=== PATIENT | male | born 1990 | race Two or more races ===

== ENCOUNTER 2024-06-06 13:07 | Emergency (ER) | payer MEDICAID ==
[~2024-06-06] VITALS: Ht 172.7 cm; Wt 91.4 kg
[2024-06-06 14:42] VITALS: BP 136/94; PULSE 73; RESP 16; TEMP 98.1; O2SAT 98
--- NOTE | 2024-06-06 14:43 | DVH ---
CLINICAL INDICATION: small finger pain TECHNIQUE: 3 radiographic views of the left hand were obtained. Comparison: None FINDINGS/IMPRESSION: There is acute mildly displaced fracture through the base of the 5th digit proximal phalanx The visualized joint space is well maintained. The alignment is anatomical. There is no radiopaque foreign body.
--- NOTE | 2024-06-06 15:17 | ED.PDOC ---
Musculoskeletal HPI Comments This is a pleasant 34-year-old gentleman with no pertinent MHx that presents with a chief complaint unilateral right hand pain located to the 5th PIP. Injury occurred June 03 Possible cause: Unknown Patient is endorsing pain to palpation in his legs exacerbated with flexion extension of the hand. Able to get temporary relief with [id number] Tylenol ibuprofen Denies any numbness tingling to the affected extremity Chief Complaint: Upper Extremity Time Seen by MD: 14:14 Reviewed Notes: Nurses Notes, Medications, Allergies Allergies: Coded Allergies: NO KNOWN ALLERGIES (Unverified , 06/06/24) Information Source: Patient Mode of Arrival: Ambulatory Family History Family History: Reviewed,noncontributory to illness Social History Smoker: Non-Smoker Alcohol: Denies ETOH Use Drugs: Denies Drug Use All Other Systems: Reviewed and Negative (Per HPI) Physical Exam General Appearance: No Apparent Distress, Normal HEENT: Normal ENT Inspection, Pharynx Normal, TMs Normal Neck: Full Range of Motion, Non-Tender, Normal, Normal Inspection Respiratory: Chest Non-Tender, Lungs Clear, No Accessory Muscle Use, No Respiratory Distress, Normal Breath Sounds Cardiovascular: No Edema, No JVD, No Murmur, No Gallop, Normal Peripheral Pulses, Regular Rate/Rhythm Breast Exam: Deferred Gastrointestinal: No Organomegaly, Non Tender, No Pulsatile Mass, Normal Bowel Sounds, Soft Genitalia: Deferred Pelvic: Deferred Rectal: Deferred Extremities: No calf tenderness, Normal capillary refill, Normal inspection, Normal range of motion, Non-tender, No pedal edema Musculoskeletal : Apperance: Normal Neurologic: Alert, No Motor Deficits, Normal Affect, Normal Mood, No Sensory Deficits Cerebellar Function: Normal Reflexes: Normal Skin: Dry, Normal Color, Warm Lymphatic: No Adenopathy Was a procedure done? Was a procedure done?: No Differential Diagnosis EXT Differential Diagnosis: Fracture, Sprain, Dislocation X-Ray, Labs, Meds, VS Vital Signs Date Time Temp Pulse Resp B/P (MAP) Pulse Ox O2 Delivery O2 Flow Rate FiO2 06/06/24 14:42 98.1 73 16 136/94 (108) 98 98.1 06/06/24 14:42 73 06/06/24 13:33 97.8 79 17 133/102 (112) 97 PATIENT: MARIS MONAHAN ACCT: [id number] UNIT: [id number] : 1990 LOC: ER ROOM / BED: / AGE / SEX: 34 / M ADM STATUS: REG ER SERVICE [id number] ORDERING PHYSICIAN: RACHEL ABEL NP PROCEDURE(s): LHAN - L HAND 3V XRAY REASON: small finger pain ORDER NUMBER(s): [id number], ACCESSION NUMBER(s): [id number] CLINICAL INDICATION: small finger pain TECHNIQUE: 3 radiographic views of the left hand were obtained. Comparison: None FINDINGS/IMPRESSION: There is acute mildly displaced fracture through the base of the 5th digit proximal phalanx The visualized joint space is well maintained. The alignment is anatomical. There is no radiopaque foreign body. ATED BY: TAN FORMAN DO DICTATED DATE/TIME: 06/06/24 1440 SIGNED BY: TAN FORMAN DO SIGNED DATE/TIME: 06/06/240 CC: X-Ray, Labs, Meds, VS Comment After review of systems and physical examination findings are consistent with a fracture. X-ray of the affected extremity was ordered and findings show There is acute mildly displaced fracture through the base of the 5th digit proximal phalanx Patient's hand was splinted in ulnar gutter. On re-evaluation patient reported significant improvement. Distal neuro sensation was intact Advised to take [id number] anti-inflammatories such as ibuprofen for inflammation and pain On reevaluation, patient had symptomatic improvement. Patient is stable for discharge at this time. External notes reviewed. Test results and diagnostic imaging interpreted. All diagnostic findings, discharge care, education and instructions provided Follow-up with PCP in 2 to 3 days Patient verbalized understanding and agreed to treatment plan Vital signs stable, afebrile, no acute distress noted Patient ambulatory with strong steady gait Advised to return precautions for any new or worsening symptoms, return to ER i mmediately for re-evaluation Patient is aware that the purpose of this visit was for an acute medical emergency requiring emergent stabilization. Chronic conditions, including malignancies have not been ruled out. Patient is instructed to follow up with PCP as directed and discharge instructions for continued care and workup. If unable to arrange follow-up, patient is to return to the emergency department for reassessment. Patient (parent or legal guardian if applicable) was given verbal and written discharge instructions and acknowledges understanding. Time of 1ST Reevaluation: 15:00 Reevaluation 1ST: Improved Patient Education/Counseling: Diagnosis, Treatment Family Education/Counseling: Diagnosis, Treatment Departure 1 Departure Time of Disposition: 15:16 Impression: Primary Impression: Metacarpal bone fracture Qualified Codes: S62.317S - Displaced fracture of base of fifth metacarpal bone, left hand, sequela Disposition: 01 HOME / SELF CARE / HOMELESS Condition: Stable Critical Care Note Critical Care Time?: No Stability Stability form required: No Heart Score Heart Score: Heart Score Response (Comments) Value History N/A 0 EKG N/A 0 Age N/A 0 Risk Factors N/A 0 Troponin N/A 0 Total 0 RACHEL ABEL NP Jun 06, 2024 15:17
== END 2024-06-06 15:43 | disposition home or self-care (01) ==
LOC: ER 13:07
DX: S62.617A Displaced fracture of proximal phalanx of left little finger, initial encounter for closed fracture (principal); X58.XXXA Exposure to other specified factors, initial encounter; Y93.89 Activity, other specified; Y92.89 Other specified places as the place of occurrence of the external cause; Y99.8 Other external cause status
CPT/HCPCS: 29125; 73130